=== PATIENT | male | born 1940 | race Caucasian/White ===

== ENCOUNTER → 2017-09-06 | Outpatient (CLI) | payer MEDICARE | LOC: CARD 08:17 | PROVIDERS: ATTEND Specialist | DX: G40.901 Epilepsy, unspecified, not intractable, with status epilepticus (principal) | CPT/HCPCS: 95816 ==

== ENCOUNTER → 2018-05-06 | Outpatient (CLI) | payer MEDICARE | END | disposition home or self-care (01) | LOC: CFH 09:43 | PROVIDERS: ATTEND Internal Medicine Cardiovascular Disease | DX: I11.9 Hypertensive heart disease without heart failure (principal); I35.0 Nonrheumatic aortic (valve) stenosis; E78.5 Hyperlipidemia, unspecified | CPT/HCPCS: 93306 ==

== ENCOUNTER 2019-05-03 10:38 | Outpatient (CLI) | payer MEDICARE | END 2019-05-03 23:59 | disposition home or self-care (01) | LOC: CFH 10:38 | PROVIDERS: ATTEND Internal Medicine Cardiovascular Disease | DX: I08.0 Rheumatic disorders of both mitral and aortic valves (principal); I11.9 Hypertensive heart disease without heart failure; E78.5 Hyperlipidemia, unspecified; Z87.891 Personal history of nicotine dependence; Z85.46 Personal history of malignant neoplasm of prostate | CPT/HCPCS: 93306 ==

== ENCOUNTER → 2020-05-01 | Outpatient (CLI) | payer MEDICARE | END | disposition home or self-care (01) | LOC: CFH 12:34 | PROVIDERS: ATTEND Internal Medicine Cardiovascular Disease | DX: I08.8 Other rheumatic multiple valve diseases (principal); Z72.0 Tobacco use | CPT/HCPCS: 93306 ==

== ENCOUNTER 2021-06-13 12:20 | Outpatient (CLI) | payer MEDICARE | END 2021-06-13 23:59 | disposition home or self-care (01) | LOC: RAD 12:20 | PROVIDERS: ATTEND Orthopaedic Surgery | DX: D48.0 Neoplasm of uncertain behavior of bone and articular cartilage (principal); J43.2 Centrilobular emphysema; M65.252 Calcific tendinitis, left thigh; I25.10 Atherosclerotic heart disease of native coronary artery without angina pectoris; J84.10 Pulmonary fibrosis, unspecified; I35.0 Nonrheumatic aortic (valve) stenosis; N28.1 Cyst of kidney, acquired; K57.30 Diverticulosis of large intestine without perforation or abscess without bleeding; M51.36 Other intervertebral disc degeneration, lumbar region; M43.8X6 Other specified deforming dorsopathies, lumbar region; M47.816 Spondylosis without myelopathy or radiculopathy, lumbar region | CPT/HCPCS: 71250; 74176 ==